=== PATIENT | female | born 1980 | race Caucasian/White ===

== ENCOUNTER 2017-01-10 11:06 | Day surgery (SDC) | payer MEDICAID ==
[~2017-01-10 11:06] MED LIST: metroNIDAZOLE/Normal Saline 500 MG in Premix Bag 1 BAG IV ONE
[2017-01-10] MEDS ORDERED: Sodium Chloride 0.9% 1,000 ML IV SCH (11:30)
[2017-01-10] MEDS ORDERED: ceFAZolin 2 GM in Premix Bag 1 BAG IV ONE (12:00)
[2017-01-10] MEDS ORDERED: fentaNYL 100 MCG/2 ML SDV ONE ×2 (12:41→12:52)
[2017-01-10] MEDS ORDERED: Propofol 200 MG/20 ML SDV ONE ×2 (12:41→12:56)
[2017-01-10] MEDS ORDERED: Midazolam 1 MG/ML 2 ML SDV ONE (12:41)
[2017-01-10] MEDS ORDERED: Bupivacaine 0.5%/EPINEPHrine 1:200,000 50 ML MDV ONE (12:56)
[2017-01-10] MEDS ORDERED: Ketorolac 60 MG/2 ML SDV ONE (13:13)
[2017-01-10 14:38] VITALS: BP 143/83
--- NOTE | 2017-01-11 08:32 | OR ---
DATE OF PROCEDURE: 01/10/2017 PROCEDURES: 1. Anal exam under anesthesia. 2. Pilonidal cyst directly posterior and superior to anal verge. COMPLICATIONS: None. ASSISTANTS: None. FINDINGS: Pilonidal tract with associated ingrown hair and cyst associated with this. RISKS: Risks, benefits, alternatives, and limitations including, but not limited to, infection, bleeding, injury to structures such as the sphincter muscle, chronic wounds, sepsis, infection, and other risks were explained to the patient and wished to proceed. PROCEDURE IN DETAIL: The patient was placed in jackknife prone position and anal exam under anesthesia was commenced. While the patient was in this position of approximately the 11 o'clock position with the patient in prone jackknife, there was noted to be a palpable mass. This was inferior to the typical location of a pilonidal cyst and the slightly lateral. Associated with this was a cystic tract with a black hair noted to be protruding from this. This tract was explored and was able to be entered into the cystic cavity. This area was anesthetized with lidocaine. The cystic cavity was then opened and cultured. There was some drainage noted with this. This was irrigated and needle exam was again repeated and there were no other palpable lesions. This was packed with iodoform gauze and left open. This opening was approximately 5 mm to three quarters of a centimeter. Dressings were applied. The patient tolerated the procedure well. Geoff Zamorano MD /[id number]
== END 2017-01-10 14:55 | disposition home or self-care (01) ==
LOC: JP.SDS 11:06
PROVIDERS: ATTEND Surgery
DX: L05.91 Pilonidal cyst without abscess (principal); I10 Essential (primary) hypertension; J45.909 Unspecified asthma, uncomplicated; F17.210 Nicotine dependence, cigarettes, uncomplicated; Z88.1 Allergy status to other antibiotic agents; Z88.2 Allergy status to sulfonamides; Z91.040 Latex allergy status
CPT/HCPCS: 11771; 87070; 87075; 87205; J0690; J1885; J2250; J2704; J3010; J7040

== ENCOUNTER 2018-05-11 08:46 | Emergency (ER) | payer MEDICAID ==
[2018-05-11 09:48] VITALS: BP 123/89
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
--- NOTE | 2018-05-12 09:12 | CR ---
Chest 2V FINDINGS: The heart and vascular structures are normal in appearance. No infiltrates or effusions are demonstrated. There are calcified granulomas of the right upper lobe. The skeletal structures are un remarkable. IMPRESSION: 1. No acute findings.
== END 2018-05-11 12:16 | disposition home or self-care (01) ==
LOC: JP.ED 08:46
DX: J01.10 Acute frontal sinusitis, unspecified (principal); I10 Essential (primary) hypertension; F17.210 Nicotine dependence, cigarettes, uncomplicated; Z88.1 Allergy status to other antibiotic agents; Z91.040 Latex allergy status
CPT/HCPCS: 36415; 71046; 71046-26; 80048; 84484; 85025; 99285

== ENCOUNTER 2019-09-09 19:02 | Emergency (ER) | payer MEDICAID ==
[2019-09-09 19:14] VITALS: BP 169/76; PULSE 90
[2019-09-09] MEDS ORDERED: Ketorolac 30 MG/ML SDV IM ONE (19:22)
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
--- NOTE | 2019-09-09 19:51 | CRLCR ---
Indication: Right 5th metacarpal trauma Technique: Three views of the right hand Comparison: None Findings: Mild degenerative changes are identified. No fracture or subluxation is identified. A nutrient vessel is identified in the mid diaphysis of the 5th metacarpal. Impression: Mild degenerative change. Dictated by Nica Nolasco MD @ Sep 09 2019 7:47PM Signed by Dr. Nica Nolasco @ Sep 09 2019 7:50PM
== END 2019-09-09 19:56 | disposition home or self-care (01) ==
LOC: JP.ED 19:02
DX: S60.221A Contusion of right hand, initial encounter (principal); F17.210 Nicotine dependence, cigarettes, uncomplicated; I10 Essential (primary) hypertension; Z88.2 Allergy status to sulfonamides; Z88.1 Allergy status to other antibiotic agents; Z91.040 Latex allergy status; Z79.899 Other long term (current) drug therapy; W01.198A Fall on same level from slipping, tripping and stumbling with subsequent striking against other object, initial encounter
CPT/HCPCS: 73130; 96372; 99283; J1885

== ENCOUNTER 2021-05-27 12:20 | Emergency (ER) | payer MEDICAID ==
[2021-05-27 12:44] VITALS: BP 117/72; PULSE 83
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
== END 2021-05-27 13:11 | disposition home or self-care (01) ==
LOC: JP.ED 12:20
DX: U07.1 COVID-19 (principal); I10 Essential (primary) hypertension; J45.909 Unspecified asthma, uncomplicated; Z72.0 Tobacco use; Z79.899 Other long term (current) drug therapy; Z91.040 Latex allergy status; Z88.1 Allergy status to other antibiotic agents; Z88.2 Allergy status to sulfonamides
CPT/HCPCS: 99284; U0002